=== PATIENT | female | born 1990 | race Two or more races ===

== ENCOUNTER 2020-09-15 15:16 | Emergency (ER) | payer SELFPAY ==
[~2020-09-15] VITALS: Ht 162.6 cm; Wt 63.6 kg
[~2020-09-15 15:16] MED LIST: NO HOME MEDS; ONDA8TAB6 PO
--- NOTE | 2020-09-15 16:48 | NUR ---
PT TO ROOM, ASSUMED CARE.
[2020-09-15 16:50] VITALS: BP 109/65
[2020-09-15] MEDS ORDERED: CYCL-1 PO (17:05)
[2020-09-15] MEDS ORDERED: ketorolac trometh. 30mg/ml inj. IM ONE (17:15)
== END 2020-09-15 17:28 | disposition home or self-care (01) ==
LOC: ER 15:17
DX: M79.7 Fibromyalgia (principal); F31.9 Bipolar disorder, unspecified; F12.90 Cannabis use, unspecified, uncomplicated; F15.90 Other stimulant use, unspecified, uncomplicated; Z72.89 Other problems related to lifestyle; Z79.899 Other long term (current) drug therapy
CPT/HCPCS: 96372; 99283; J1885

== ENCOUNTER 2024-05-13 18:22 | Emergency (ER) | payer OTHER ==
[~2024-05-13] VITALS: Ht 162.6 cm; Wt 73.3 kg
[~2024-05-13 18:22] MED LIST changes: +CYCL-1 PO
[2024-05-13 18:38] VITALS: BP 134/89; PULSE 74; RESP 18; TEMP 98.4; O2SAT 98
[2024-05-13] MEDS ORDERED: NAPR-56 PO (19:31)
== END 2024-05-13 19:56 | disposition home or self-care (01) ==
LOC: ER 18:23
DX: M25.561 Pain in right knee (principal); M79.7 Fibromyalgia; F31.9 Bipolar disorder, unspecified; F12.90 Cannabis use, unspecified, uncomplicated; F15.90 Other stimulant use, unspecified, uncomplicated; Z79.899 Other long term (current) drug therapy; X50.1XXA Overexertion from prolonged static or awkward postures, initial encounter; Y93.89 Activity, other specified; Y92.89 Other specified places as the place of occurrence of the external cause; Y99.8 Other external cause status
CPT/HCPCS: 29505; 73564; 99283

== ENCOUNTER 2024-11-06 19:21 | Emergency (ER) | payer MEDICAID ==
[~2024-11-06] VITALS: Ht 160 cm; Wt 77.7 kg
[2024-11-06 19:30] VITALS: TEMP 98.1
[2024-11-06 19:44] LABS: MEAN PLATELET VOLUME 6.5 FL (7.4-10.4); RED CELL DISTRIBUTION WIDTH 12.9 % (11.5-14.5)
--- NOTE | 2024-11-06 19:57 | RADIOLOGY REPORT ---
CLINICAL HISTORY: CP TECHNIQUE: View of the chest was obtained. WID: COMPARISON: None FINDINGS: Lungs: clear Cardiomediastinal silhouette: normal in size Bones: No acute osseous abnormality. Imaged upper Abdomen: unremarkable. IMPRESSION: 1. NO ACUTE CARDIOPULMONARY PROCESS.
[2024-11-06 20:04] LABS: CREATININE 0.75 MG/DL (0.40-0.90); PRO BRAIN NATRIURETIC PEPTIDE < 30 PG/ML (0-125); TOTAL CARBON DIOXIDE 24.8 MMOL/L (24-32); eCRCL 87 ML/MIN; eGFR 88 ML/MIN
[2024-11-06 23:14] VITALS: BP 129/90; PULSE 77; O2SAT 100
--- NOTE | 2024-11-06 23:23 | Physician Documentation ---
History of Present Illness ~ Chief Complaint: Chest Pain Stated Complaint: R ARM PAIN Time Seen by MD: 23:23 Primary Medical Doctor: WARREN LOVE Patient presents to the emergency room with three day history of right arm pain. No exacerbating or relieving factors. She states she woke up like this and feels like she may have slept on it wrong however that has seemed to be creeping over to her anterior right chest therefore she came in to be evaluated. She denies one-sided leg symptoms or lower extremity swelling. Medication Reconciliation Allergies: Coded Allergies: No Known Allergies (Unverified , 11/01/12) Scheduled Cyclobenzaprine* (Cyclobenzaprine*), 1 TAB PO HS Scheduled PRN Ondansetron Hcl (Zofran), 1 TABLET PO Q8H PRN for nausea/vomiting Miscellaneous Medications Home Med List (No Home Medications), (Reported) Past Medical History Past Medical History: Fibromyalgia, Bipolar Past Surgical History: no surgical history Alcohol Use: Sober Drug Use: marijuana, methamphetamine Lives In: Home Review of Systems ROS All review of systems negative except as per HPI Physical Exam Vital Signs: Temperature: 98.1, Source: Oral, Heart Rate: 77, Respiratory Rate: 16, BP: 129/90, Pulse Oximetry: 100, Weight: 77.650 Oxygen Flow Rate: 0 Physical Exam General: Patient is awake, alert, oriented x4 in no acute distress Head: Normocephalic and atraumatic. Eyes: Conjunctival normal. EOMI. PERRL. ENT: Mucous membranes moist. Neck: Supple, trachea is midline. Chest: Clear to auscultation bilaterally without rales, rhonchi, or wheezes. There is no accessory muscle use or retractions. Cardiac: RRR without murmurs, gallops, or rubs. Abd: Soft, nondistended, nontender, with normoactive bowel sounds. No guarding, rebound, or rigidity. Extremities: Normal strength. Normal range of motion. No deformities or edema. No calf tenderness to palpation Progress Results/Orders Results/Orders Orders - JUSTINO GARCIA MD Chest,Single View (11/06/24 19:41) Monitor (11/06/24 19:34) Saline Lock (11/06/24 19:34) Oxygen (11/06/24 19:34) Electrocardiogram (11/06/24 19:34) Completed Orders - JUSTINO GARCIA MD Chest,Single View (11/06/24 19:41) Cbc/Diff (11/06/24 19:34) BMP (11/06/24 19:34) PBNP (11/06/24 19:34) Hs Troponin I W Calculations (11/06/24 19:34) Hs Troponin I W Calculations (11/06/24 21:34) Hs Troponin I W Calculations (11/06/24 22:34) Vital Signs 11/06/24 11/06/24 19:30 23:14 Temp 98.1 Pulse 77 77 Resp 16 16 B/P (MAP) 137/91 129/90 (103) Pulse Ox 98 100 O2 Flow Rate 0 0 Laboratory Tests Test 11/06/24 19:35 11/06/24 21:29 11/06/24 22:16 White Blood Count 8.5 Red Blood Count 4.27 Hemoglobin 12.9 Hematocrit 37.3 Mean Corpuscular Volume 87.5 Mean Corpuscular Hemoglobin 30.3 Mean Corpuscular Hemoglobin Concent 34.6 Red Cell Distribution Width 12.9 Platelet Count 375 Mean Platelet Volume 6.5 L Neutrophils (%) (Auto) 47.2 Lymphocytes (%) (Auto) 36.3 Monocytes (%) (Auto) 13.0 H Eosinophils (%) (Auto) 2.8 Basophils (%) (Auto) 0.7 Neutrophils # (Auto) 4.0 Lymphocytes # (Auto) 3.1 Monocytes # (Auto) 1.1 H Eosinophils # (Auto) 0.2 Basophils # (Auto) 0.1 CBC Comment Sodium Level 138 Potassium Level 3.7 Chloride Level 106 Carbon Dioxide Level 24.8 Anion Gap 7 L Blood Urea Nitrogen 11 Creatinine 0.75 Estimated GFR/1.73 m2 88 BUN/Creatinine Ratio 14.7 Glucose Level 97 Calcium Level 8.6 Troponin I High Sensitivity 5 5 6 Pro-B-Type Natriuretic Peptide < 30 Albumin 3.8 Chemistry Comments Troponin I High Sens Percent Delta 0 20 Troponin I Hi Sens Absolute Change 0 1 EKG/XRAY/CT/US/VASC/MRI EKG : Additional Comment EKG interpreted by myself shows time of 1937, rate 79, sinus rhythm, normal axis, no ST changes Chest X-Ray : Additional Comments One view chest x-ray interpreted by myself shows no effusions, no infiltrates and normal cardiac silhouette Medical Decision Making Findings Patient presents to the emergency room for evaluation of chest pain. Differentials include but are not limited to musculoskeletal pain, ACS, aortic pathology, pulmonary embolism therefore emergent labs and imaging indicated. Chest x-ray is reassuring. No tachycardia, no hypoxia and no calf tenderness and he had not feel patient requires investigation into possible pulmonary embolism. Patient's heart score is 0. She is considered low cardiovascular risk. Departure Disposition: HOME / SELF CARE / HOMELESS Impression: Primary Impression: Chest pain Condition: Stable Discharge Instructions: Nonspecific Chest Pain, Adult Referrals: NO PRIMARY CARE PROVIDER (PCP) Signature Scribe Signature: No scribe Attestation: The note accurately reflects work and decisions made by me.Justino Garcia MD 11/06/24 23:37 JUSTINO GARCIA MD Nov 06, 2024 23:23
[2024-11-06 23:40] VITALS: RESP 18
--- NOTE | 2024-11-07 06:02 | ELECTROCARDIOGRAPH REPORT ---
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
== END 2024-11-06 23:55 | disposition home or self-care (01) ==
LOC: ER 19:22
DX: R07.89 Other chest pain (principal); M79.7 Fibromyalgia; F31.9 Bipolar disorder, unspecified; F12.90 Cannabis use, unspecified, uncomplicated; F15.90 Other stimulant use, unspecified, uncomplicated; Z79.899 Other long term (current) drug therapy
CPT/HCPCS: 36415; 71045; 80048; 83880; 84484; 85025; 93005; 99285

== ENCOUNTER 2024-12-04 11:09 | Emergency (ER) | payer MEDICAID ==
[~2024-12-04] VITALS: Ht 160 cm; Wt 77.3 kg
[2024-12-04 11:20] VITALS: TEMP 97.3
--- NOTE | 2024-12-04 11:49 | Physician Documentation ---
HPI ~ General Chief Complaint: Tooth Problem Stated Complaint: TOOTH ACHE Time Seen by MD: 11:45 Primary Medical Doctor: WARREN History of Present Illness HPI Comment Presents with a complaint of toothache on the right upper funt side where she has a previous tooth fracture. She states she has not appointment with her dentist needs to be seen here 1st so we can treat the infection fevers or nausea vomiting Medication Reconciliation Allergies: Coded Allergies: No Known Allergies (Unverified , 12/04/24) Scheduled Cyclobenzaprine* (Cyclobenzaprine*), 1 TAB PO HS Scheduled PRN Ondansetron Hcl (Zofran), 1 TABLET PO Q8H PRN for nausea/vomiting Miscellaneous Medications Home Med List (No Home Medications), (Reported) Past Medical History Past Medical History: Fibromyalgia, Bipolar Past Surgical History: no surgical history Alcohol Use: Sober Drug Use: marijuana, methamphetamine Lives In: Home Review of Systems All Other Systems at this time: Reviewed and Negative ROS As stated above in the HPI, otherwise all systems are reviewed and negative. Physical Exam Vital Signs: Temperature: 97.3, Source: Temporal, Heart Rate: 79, Respiratory Rate: 18, BP: 135/81, Pulse Oximetry: 98, Weight: 77.270 Physical Exam General: Alert, no apparent distress. HEENT: PERRL, EOMI, no injection, moist mucous membranes. poor dentition , no o bvious abcesses Respiratory: Lungs clear, no respiratory distress. Neurologic: Oriented x4. Psychiatric: Normal mood and affect. Skin: Normal color, warm and dry. No edema, no ecchymosis. Progress Results/Orders Results/Orders Orders - DEMIAN SAVAGE CONCRETE TECHNICIAN Amoxicillin Capsule (Trimox Capsule) (12/04/24 11:50) Vital Signs 12/04/24 11:20 Temp 97.3 Pulse 79 Resp 18 B/P (MAP) 135/81 Pulse Ox 98 Medical Decision Making Findings treating empiriaclly for dental infection which has not developed into an abscess at this time. Differential Dx:Considerations: Include: Alveolar fracture, Alveolar osteitis, ANUG, Facial Cellulitis, Periapical abscess, Peridontal abscess, Post-extraction bleeding, Pulpitis, Tooth avulsion, Tooth eruption, Tooth Fracture, Trigeminal neuralgia, Tooth subluxation, Other Departure Disposition: 01 HOME / SELF CARE / HOMELESS Impression: Primary Impression: Dental caries Additional Impression: Dental abscess Condition: Stable Discharge Instructions: Dental Caries, Adult Referrals: NO PRIMARY CARE PROVIDER (PCP) Prescriptions Amoxicillin Trihydrate* (Amoxicillin*) 500 Mg Capsule 1 CAP PO Q8H for 10 Days, #30 CAP Prov: DEMIAN SAVAGE NP 12/04/24 Signature Scribe Signature: r Attestation: Scribed for Demian Savage [employer] Sales Representative by Demian Middleton NP . 12/04/24 11:48 DEMIAN SAVAGE NP Dec 04, 2024 11:49
[2024-12-04] MEDS ORDERED: AMOX500C2 PO (11:51)
[2024-12-04 12:06] VITALS: BP 136/76; PULSE 78; RESP 14; O2SAT 98
== END 2024-12-04 12:08 | disposition home or self-care (01) ==
LOC: ER 11:09
DX: K04.7 Periapical abscess without sinus (principal); K02.9 Dental caries, unspecified; F31.9 Bipolar disorder, unspecified; M79.7 Fibromyalgia; F12.90 Cannabis use, unspecified, uncomplicated; F15.90 Other stimulant use, unspecified, uncomplicated; Z79.899 Other long term (current) drug therapy
CPT/HCPCS: 99283